=== PATIENT | female | born 1980 | race Caucasian/White ===

== ENCOUNTER → 2017-12-28 | Outpatient (CLI) | payer OTHER | END | disposition home or self-care (01) | LOC: US 08:42 | DX: R10.9 Unspecified abdominal pain (principal) ==

== ENCOUNTER → 2017-12-31 | Outpatient (CLI) | payer OTHER | END | disposition home or self-care (01) | LOC: US 08:17 | PROC: BF42ZZZ Ultrasonography of Gallbladder (ICD-10-PCS; principal; 2017-12-31) | DX: R10.9 Unspecified abdominal pain (principal) ==